=== PATIENT | female | born 1945 | race Caucasian/White ===

== ENCOUNTER → 2017-04-18 | Outpatient (CLI) | payer OTHER | LOC: RAD 03-14 15:15 | DX: Z12.31 Encounter for screening mammogram for malignant neoplasm of breast (principal) ==

== ENCOUNTER → 2018-04-24 | Outpatient (CLI) | payer OTHER | LOC: RAD 01:19 | DX: Z12.31 Encounter for screening mammogram for malignant neoplasm of breast (principal) ==